=== PATIENT | male | born 1990 | race Caucasian/White ===

== ENCOUNTER 2019-02-25 12:12 | Emergency (ER) | payer SELFPAY ==
[~2019-02-25] VITALS: Ht 152.4 cm; Wt 79.8 kg
[2019-02-25 12:17] VITALS: Ht 152.4 cm; Wt 79.8 kg
[2019-02-25 16:37] LABS: BASOPHIL % 0.5 % (0-2); PLATELET COUNT 223 x10^3mcL (130-400)
[2019-02-25 16:39] LABS: RED CELL DISTRIBUTION WIDTH 21.4 % (11.5-14.5)
[2019-02-25 16:47] LABS: CALCIUM 8.4 mg/dL (8.5-10.1); CARBON DIOXIDE 29.8 mmol/L (21-32); CHLORIDE SERUM 104 mmol/L (98-107); CREATININE SERUM 0.5 mg/dL (0.7-1.3); GFR1 > 60 mL/min; GLUCOSE SERUM 86 mg/dL (74-106); POTASSIUM SERUM 4.2 mmol/L (3.5-5.1); SODIUM SERUM 142 mmol/L (136-145)
[2019-02-25 16:51] LABS: ALBUMIN 3.7 g/dL (3.4-5.0); ALKALINE PHOSPHATASE 129 U/L (46-116); ALT/SGPT 68 U/L (16-63); AST/SGOT 31 U/L (15-37); BILIRUBIN TOTAL 0.6 mg/dL (0.20-1.00)
[2019-02-25 17:17] LABS: rbc morphology (normal/abnorm) ABNORMAL (NORMAL)
[2019-02-25 17:32] VITALS: BP 111/74
== END 2019-02-25 17:32 | disposition home or self-care (01) ==
LOC: ED 12:12
PROVIDERS: Emergency Medicine
DX: R07.89 Other chest pain (principal); M54.17 Radiculopathy, lumbosacral region
CPT/HCPCS: 36415; Q0092

== ENCOUNTER 2019-09-29 00:40 | Emergency (ER) | payer MEDICAID ==
[~2019-09-29] VITALS: Ht 162.6 cm; Wt 80.0 kg
[2019-09-29 00:46] VITALS: Ht 162.6 cm; Wt 80.0 kg
[2019-09-29 03:02] VITALS: BP 120/85
== END 2019-09-29 03:02 | disposition home or self-care (01) ==
LOC: ED 00:40
DX: G44.209 Tension-type headache, unspecified, not intractable (principal)
CPT/HCPCS: J1885

== ENCOUNTER 2019-09-29 19:25 | Emergency (ER) | payer MEDICAID ==
[~2019-09-29] VITALS: Ht 160 cm; Wt 78.9 kg
[2019-09-29 19:51] VITALS: Ht 160 cm; Wt 78.9 kg
[2019-09-30 01:27] VITALS: BP 108/83
== END 2019-09-30 01:27 | disposition home or self-care (01) ==
LOC: ED 19:25
DX: G43.909 Migraine, unspecified, not intractable, without status migrainosus (principal); R09.81 Nasal congestion
CPT/HCPCS: J2270; J2765; J7030

== ENCOUNTER 2020-01-24 20:42 | Emergency (ER) | payer SELFPAY ==
[~2020-01-24] VITALS: Ht 162.6 cm; Wt 79.4 kg
[2020-01-24 20:59] VITALS: Ht 162.6 cm; Wt 79.4 kg
[2020-01-24 21:24] LABS: BASOPHIL % 0.5 % (0-2); PLATELET COUNT 209 x10^3mcL (130-400); RED CELL DISTRIBUTION WIDTH 14.5 % (11.5-14.5)
[2020-01-24 21:33] LABS: CALCIUM 8.6 mg/dL (8.5-10.1); CARBON DIOXIDE 25.7 mmol/L (21-32); CHLORIDE SERUM 103 mmol/L (98-107); CREATININE SERUM 0.6 mg/dL (0.7-1.3); GFR1 > 60 mL/min; GLUCOSE SERUM 117 mg/dL (74-106); POTASSIUM SERUM 3.5 mmol/L (3.5-5.1); SODIUM SERUM 139 mmol/L (136-145)
[2020-01-24 21:37] LABS: ALBUMIN 3.6 g/dL (3.4-5.0); ALKALINE PHOSPHATASE 104 U/L (46-116); ALT/SGPT 40 U/L (16-63); AST/SGOT 24 U/L (15-37); BILIRUBIN TOTAL 0.3 mg/dL (0.20-1.00); TOTAL PROTEIN, SERUM 7.7 g/dL (6.4-8.2)
[2020-01-24 23:25] VITALS: BP 130/87
== END 2020-01-24 23:25 | disposition home or self-care (01) ==
LOC: ED 20:42
PROVIDERS: Student in an Organized Health Care Education/Training Program
DX: K59.00 Constipation, unspecified (principal); R10.84 Generalized abdominal pain; K92.1 Melena
CPT/HCPCS: Q0092

== ENCOUNTER 2020-01-29 22:32 | Emergency (ER) | payer SELFPAY ==
[~2020-01-29] VITALS: Ht 167.6 cm; Wt 79.8 kg
[2020-01-29 22:39] VITALS: Ht 167.6 cm; Wt 79.8 kg
[2020-01-30 02:12] LABS: CALCIUM 8.7 mg/dL (8.5-10.1); CARBON DIOXIDE 27.3 mmol/L (21-32); CHLORIDE SERUM 104 mmol/L (98-107); CREATININE SERUM 0.8 mg/dL (0.7-1.3); GFR1 > 60 mL/min; GLUCOSE SERUM 111 mg/dL (74-106); POTASSIUM SERUM 4.2 mmol/L (3.5-5.1); SODIUM SERUM 139 mmol/L (136-145)
[2020-01-30 02:14] LABS: BASOPHIL % 0.5 % (0-2); PLATELET COUNT 230 x10^3mcL (130-400); RED CELL DISTRIBUTION WIDTH 13.9 % (11.5-14.5)
[2020-01-30 02:16] LABS: ALBUMIN 3.4 g/dL (3.4-5.0); ALKALINE PHOSPHATASE 107 U/L (46-116); ALT/SGPT 37 U/L (16-63); AST/SGOT 15 U/L (15-37); LIPASE 107 IU/L (73-393); TOTAL PROTEIN, SERUM 7.7 g/dL (6.4-8.2)
[2020-01-30 05:48] VITALS: BP 114/74
== END 2020-01-30 04:37 | disposition home or self-care (01) ==
LOC: ED 22:32
PROVIDERS: Emergency Medicine
DX: R10.9 Unspecified abdominal pain (principal); R19.7 Diarrhea, unspecified
CPT/HCPCS: Q0162

== ENCOUNTER 2020-09-17 06:35 | Emergency (ER) | payer MEDICAID ==
[~2020-09-17] VITALS: Ht 165.1 cm; Wt 80.4 kg
[2020-09-17 06:46] VITALS: Ht 165.1 cm; Wt 80.4 kg
[2020-09-17 08:24] LABS: BASOPHIL % 0.7 % (0.2-1.5); PLATELET COUNT 162 x10^3mcL (152-348)
[2020-09-17 08:54] LABS: CALCIUM 8.1 mg/dL (8.5-10.1); CARBON DIOXIDE 25.2 mmol/L (21-32); CHLORIDE SERUM 105 mmol/L (98-107); CREATININE SERUM 0.5 mg/dL (0.7-1.3); GFR1 > 60 mL/min; GLUCOSE SERUM 113 mg/dL (74-106); POTASSIUM SERUM 3.9 mmol/L (3.5-5.1); SODIUM SERUM 140 mmol/L (136-145)
[2020-09-17 08:59] LABS: ALBUMIN 3.4 g/dL (3.4-5.0); ALKALINE PHOSPHATASE 105 U/L (46-116); ALT/SGPT 81 U/L (16-63); AST/SGOT 53 U/L (15-37); BILIRUBIN TOTAL 0.2 mg/dL (0.20-1.00); CHOLESTEROL 153 mg/dL (<200); HDL CHOLESTEROL 32 mg/dL (40-60); PHOSPHOROUS 3.7 mg/dL (2.5-4.9); URIC ACID 4.8 mg/dL (3.5-7.2)
[2020-09-17] MEDS ORDERED: NAPROXEN375 MG PO (09:08)
[2020-09-17] MEDS ORDERED: ULTRAM50 MG PO (09:08)
[2020-09-17 09:29] VITALS: BP 126/81
== END 2020-09-17 09:29 | disposition home or self-care (01) ==
LOC: ED 06:35
PROVIDERS: Emergency Medicine
DX: R07.89 Other chest pain (principal); R20.0 Anesthesia of skin
CPT/HCPCS: J1885

== ENCOUNTER → 2020-10-02 | Outpatient (CLI) | payer MEDICAID ==
[~2020-10-02] MED LIST: NAPROXEN375 MG PO; ULTRAM50 MG PO
[2020-10-02 17:32] LABS: BASOPHIL % 0.7 % (0.2-1.5); PLATELET COUNT 206 x10^3mcL (152-348); RED CELL DISTRIBUTION WIDTH 13.5 % (12.1-16.2)
[2020-10-02 17:45] LABS: ALKALINE PHOSPHATASE 114 U/L (46-116); ALT/SGPT 54 U/L (16-63); AST/SGOT 27 U/L (15-37); BILIRUBIN TOTAL 0.2 mg/dL (0.20-1.00); CALCIUM 8.8 mg/dL (8.5-10.1); CARBON DIOXIDE 25.2 mmol/L (21-32); CHLORIDE SERUM 103 mmol/L (98-107); CHOLESTEROL 178 mg/dL (<200); CREATININE SERUM 0.6 mg/dL (0.7-1.3); GFR1 > 60 mL/min; GLUCOSE SERUM 93 mg/dL (74-106); POTASSIUM SERUM 3.9 mmol/L (3.5-5.1); SODIUM SERUM 138 mmol/L (136-145); TOTAL PROTEIN, SERUM 8.2 g/dL (6.4-8.2); TRIGLYCERIDES 120 mg/dL (<150)
[2020-10-02 17:46] LABS: CHOLESTEROL/HDL RATIO 5.4; HDL CHOLESTEROL 33 mg/dL (40-60)
== END | disposition home or self-care (01) ==
LOC: LB 17:10
DX: Z00.00 Encounter for general adult medical examination without abnormal findings (principal)